=== PATIENT | female | born 1955 | race African-American/Black ===

== ENCOUNTER 2016-09-07 11:11 | Day surgery (SDC) | payer OTHER ==
[~2016-09-07] VITALS: Ht 156.2 cm; Wt 52.0 kg
[~2016-09-07 11:11] MED LIST: ALBUTEROL SULF8.5 GM IH; ANTACID650 MG PO; ASPIR-LOW81 MG PO; ASPIRIN E.C.81 M1 PO; ASPIRIN81 M1 PO; CALCIUM ACETAT667 MG PO; COMBIVENT INH14.7 GM IH; DIALYVITE 3,001 EACH PO; DIALYVITE TABL1 EACH; DIALYVITE TABL1 EACH PO; Diatx W/Zinc,Folbee PO; Epogen,Procrit IV; GLIPIZIDE5 M1 PO; Glucotrol PO; HECTOROL4 MCG/2 M1 IV; LABETALOL HCL200 MG; LABETALOL HCL200 MG PO; LABETALOL HCL300 MG PO; LISINOPRIL10 MG PO; NIFEDICAL XL30 MG PO; NORMODYNE,TRAN200 MG PO; PHOSLO667 M1 PO; PRINIVIL10 MG PO; PROAIR HFA8.5 GM IH; PROTONIX40 MG PO; Phoslo PO; RENVELA PO; SENSIPAR30 MG PO; SODIUM BICARBO325 MG PO; Sodium Bicarbonate PO; TRANDATE300 MG PO; TYLENOL EXTRA500 MG PO; VITAMIN D33000 UNIT PO; VITAMIN D5000 UNIT PO; ZESTRIL,PRINIVI10 MG PO; ZITHROMAX250 MG PO
[2016-09-07 13:17] LABS: METH RESISTANT S AUREUS PCR NEGATIVE (NEGATIVE)
[2016-09-07 13:19] LABS: PROBE CHECK PASS; SPECIMEN PROCESSING CONTROL PASS
== END 2016-09-07 13:20 | disposition home or self-care (01) ==
LOC: CATH 11:11
PROVIDERS: Surgery
DX: T82.858A Stenosis of other vascular prosthetic devices, implants and grafts, initial encounter (principal); Y83.2 Surgical operation with anastomosis, bypass or graft as the cause of abnormal reaction of the patient, or of later complication, without mention of misadventure at the time of the procedure; I12.0 Hypertensive chronic kidney disease with stage 5 chronic kidney disease or end stage renal disease; E11.22 Type 2 diabetes mellitus with diabetic chronic kidney disease; N18.6 End stage renal disease; J45.909 Unspecified asthma, uncomplicated; Z99.2 Dependence on renal dialysis; J44.9 Chronic obstructive pulmonary disease, unspecified
CPT/HCPCS: 87641; C1725; C1769; C1894; J1644; J3010

== ENCOUNTER → 2017-01-11 | Outpatient (CLI) | payer OTHER | END | disposition home or self-care (01) | LOC: CDC 08:23 | DX: R94.31 Abnormal electrocardiogram [ECG] [EKG] (principal) | CPT/HCPCS: 93000 ==

== ENCOUNTER 2017-08-18 08:45 | Day surgery (SDC) | payer OTHER ==
[~2017-08-18] VITALS: Ht 156.2 cm; Wt 52.0 kg
== END 2017-08-18 12:50 | disposition home or self-care (01) ==
LOC: CATH 08:45
PROVIDERS: Surgery
DX: T82.590A Other mechanical complication of surgically created arteriovenous fistula, initial encounter (principal); T82.858A Stenosis of other vascular prosthetic devices, implants and grafts, initial encounter; E11.22 Type 2 diabetes mellitus with diabetic chronic kidney disease; I12.0 Hypertensive chronic kidney disease with stage 5 chronic kidney disease or end stage renal disease; N18.6 End stage renal disease; Z99.2 Dependence on renal dialysis; Z87.11 Personal history of peptic ulcer disease; J44.9 Chronic obstructive pulmonary disease, unspecified; E89.0 Postprocedural hypothyroidism; Z79.82 Long term (current) use of aspirin; F17.200 Nicotine dependence, unspecified, uncomplicated; Z90.49 Acquired absence of other specified parts of digestive tract; Z82.49 Family history of ischemic heart disease and other diseases of the circulatory system; Z83.3 Family history of diabetes mellitus; Y83.2 Surgical operation with anastomosis, bypass or graft as the cause of abnormal reaction of the patient, or of later complication, without mention of misadventure at the time of the procedure
CPT/HCPCS: 82948; 87641; C1725; C1769; C1894; J1644; J2250; J3010

== ENCOUNTER 2017-12-06 10:07 | Day surgery (SDC) | payer OTHER | END 2017-12-06 12:57 | disposition home or self-care (01) | LOC: CATH 10:07 | PROVIDERS: Surgery | PROC: B51W1ZZ Fluoroscopy of Dialysis Shunt/Fistula using Low Osmolar Contrast (ICD-10-PCS; principal; 2017-12-06) | PROC: 05HY33Z Insertion of Infusion Device into Upper Vein, Percutaneous Approach (ICD-10-PCS; principal; 2017-12-06) | PROC: 057Y3ZZ Dilation of Upper Vein, Percutaneous Approach (ICD-10-PCS; principal; 2017-12-06) | PROC: 3E03317 Introduction of Other Thrombolytic into Peripheral Vein, Percutaneous Approach (ICD-10-PCS; principal; 2017-12-06) | DX: T82.41XA Breakdown (mechanical) of vascular dialysis catheter, initial encounter (principal); Y83.2 Surgical operation with anastomosis, bypass or graft as the cause of abnormal reaction of the patient, or of later complication, without mention of misadventure at the time of the procedure; I12.0 Hypertensive chronic kidney disease with stage 5 chronic kidney disease or end stage renal disease; E11.22 Type 2 diabetes mellitus with diabetic chronic kidney disease; N18.6 End stage renal disease; Z99.2 Dependence on renal dialysis; K27.9 Peptic ulcer, site unspecified, unspecified as acute or chronic, without hemorrhage or perforation; J44.9 Chronic obstructive pulmonary disease, unspecified; F17.200 Nicotine dependence, unspecified, uncomplicated; Z79.82 Long term (current) use of aspirin | CPT/HCPCS: 82948; 87641; C1725; C1769; C1894; J1644; J2250; J3010 ==

== ENCOUNTER 2018-02-19 06:10 | Day surgery (SDC) | payer OTHER ==
[~2018-02-19] VITALS: Ht 156.2 cm; Wt 50.0 kg
== END 2018-02-19 11:25 | disposition home or self-care (01) ==
LOC: CATH 06:10
PROVIDERS: Surgery
DX: T82.858A Stenosis of other vascular prosthetic devices, implants and grafts, initial encounter (principal); Z79.82 Long term (current) use of aspirin; I12.0 Hypertensive chronic kidney disease with stage 5 chronic kidney disease or end stage renal disease; E11.22 Type 2 diabetes mellitus with diabetic chronic kidney disease; N18.6 End stage renal disease; Z99.2 Dependence on renal dialysis; K27.9 Peptic ulcer, site unspecified, unspecified as acute or chronic, without hemorrhage or perforation; E07.9 Disorder of thyroid, unspecified; J44.9 Chronic obstructive pulmonary disease, unspecified; D64.9 Anemia, unspecified; F17.200 Nicotine dependence, unspecified, uncomplicated
CPT/HCPCS: 82948; 87641; C1725; C1769; C1874; C1894; J1644; J2250; J3010